=== PATIENT | male | born 1960 ===

== ENCOUNTER → 2018-05-13 20:45 | Outpatient (REF) | payer OTHER, SELFPAY ==
[2018-05-13 20:59] LABS: Add Manual Diff / Slide Review NO; Basophils Absolute Auto 100 /uL (0-100); Eosinophils Absolute Auto 100 /uL (0-450); Eosinophils Percent Auto 2.1 % (2-4); Hematocrit 48.5 % (41-53); Hemoglobin 16.4 g/dL (13.5-17.5); Lymphocytes Absolute Auto 1600 /uL (1100-4500); Lymphocytes Percent Auto 25.8 % (25-40); Mean Corpuscular HGB Conc 33.7 % (30-36); Mean Corpuscular Hemoglobin 30.6 PG (26-34); Mean Corpuscular Volume 90.8 fL (80-100); Monocytes Absolute Auto 600 /uL (0-900); Monocytes Percent Auto 9.7 % (3-14); Neutrophils Absolute Auto 3800 /uL (1500-7000); Neutrophils Percent Auto 61.4 % (50-75); Platelet Count 181 X10^3/uL (150-400); Red Blood Cell Count 5.34 X10^6/uL (4.5-5.9); Red Cell Distribution Width 12.9 % (11.6-14.8); White Blood Cell Count 6.2 X10^3/uL (4.5-11.0)
[2018-05-13 21:05] LABS: Hemoglobin A1C% w Est Avg Glu 4.9 % (4.0-6.0)
[2018-05-13 21:26] LABS: Erythrocyte Sedimentation Rate 4 MM/HR (0-15)
[2018-05-13 21:28] LABS: Alanine Aminotransferase 182 IU/L (21-72); Alkaline Phosphatase 86 U/L (38-126); Aspartate Aminotransferase 175 IU/L (17-59); BUN Creatinine Ratio 18.8 (6-22); Bilirubin Total 1.6 mg/dL (0.2-1.3); Blood Urea Nitrogen 15 mg/dL (9-20); Calcium 9.2 mg/dL (8.4-10.2); Carbon Dioxide 27 mmol/L (22-32); Chloride 104 mmol/L (98-107); Cholesterol 202 mg/dL (140-199); Estimated Glomerular Filt Rate > 60.0 mL/min (>60); Glucose 96 mg/dL (70-100); HDL Cholesterol 51 mg/dL (40-60); HEMOLYSIS 20 (0-50); LDL Cholesterol Calculated 137 mg/dL (<100); Potassium 4.7 mmol/L (3.4-5.1); Sodium 138 mmol/L (137-145); Triglycerides 72 mg/dL (35-150)
[2018-05-17 22:40] LABS: Homocysteine 19.7 umol/L (< 11.4)
== END ==
LOC: LAB 20:45
PROVIDERS: Visit Provider Nurse Practitioner Acute Care
DX: I10 Essential (primary) hypertension (principal); R53.83 Other fatigue; M10.9 Gout, unspecified; L97.909 Non-pressure chronic ulcer of unspecified part of unspecified lower leg with unspecified severity; R06.02 Shortness of breath; Z82.49 Family history of ischemic heart disease and other diseases of the circulatory system; Z13.6 Encounter for screening for cardiovascular disorders
CPT/HCPCS: 36415; 80053; 80061; 83036; 83090; 85025; 85651; 87070; 87075; 87077; 87147; 87205

== ENCOUNTER → 2018-05-28 20:01 | Outpatient (REF) | payer OTHER, SELFPAY ==
[2018-05-28 22:03] LABS: Hep C Virus Ab w/Reflex Quant REACTIVE s/c (NEGATIVE)
[2018-05-28 23:23] LABS: Folate 8.7 ng/mL (2.76-20.0); Vitamin B12 611 pg/mL (239-931)
== END ==
LOC: LAB 20:01
PROVIDERS: Visit Provider Nurse Practitioner Acute Care
DX: I77.6 Arteritis, unspecified (principal); E88.81 Metabolic syndrome and other insulin resistance; R60.9 Edema, unspecified
CPT/HCPCS: 82607; 82746; 86803; 87522

== ENCOUNTER → 2018-07-09 19:34 | Outpatient (ROUT) | payer OTHER, SELFPAY ==
[2018-07-09 20:19] LABS: Alanine Aminotransferase 255 IU/L (21-72); Alkaline Phosphatase 97 U/L (38-126); Aspartate Aminotransferase 296 IU/L (17-59); BUN Creatinine Ratio 18.8 (6-22); Bilirubin Total 1.5 mg/dL (0.2-1.3); Blood Urea Nitrogen 15 mg/dL (9-20); Calcium 9.4 mg/dL (8.4-10.2); Carbon Dioxide 28 mmol/L (22-32); Chloride 103 mmol/L (98-107); Estimated Glomerular Filt Rate > 60.0 mL/min (>60); Globulin 3.9 g/dL (1.7-4.1); Glucose 104 mg/dL (70-100); HEMOLYSIS 29 (0-50); Potassium 4.2 mmol/L (3.4-5.1); Sodium 137 mmol/L (137-145); Total Protein 7.9 g/dL (6.3-8.2)
== END ==
PROVIDERS: Visit Provider Nurse Practitioner Acute Care
DX: E78.00 Pure hypercholesterolemia, unspecified (principal)
CPT/HCPCS: 80053